=== PATIENT | male | born 1960 | race Caucasian/White ===

== ENCOUNTER → 2021-09-22 16:59 | Outpatient (CLI) | payer OTHER, SELFPAY ==
--- NOTE | ~2021-09-22 | MR_ITS ---
EXAMINATION: MR shoulder LT wo con DATE: 09/22/2021 17:42 INDICATION: Complete rotator cuff tear with posterior left shoulder pain radiating down the arm since lifting weights TECHNIQUE: Magnetic resonance imaging (MRI) of the left shoulder was performed without intravenous co ntrast. Sequences included axial PD-weighted FS FSE, coronal oblique PD-weighted FS FSE, coronal obli que T2-weighted FS FSE, sagittal PD-weighted FS FSE, and sagittal T1-weighted SE. COMPARISON: None. FINDINGS: Coracoacromial arch: The acromion undersurface is curved in morphology (type II) tiny subacromial spurs along the anterior lateral margin of the acromion. The coracoacromial ligament is normal. Mild acromioclavicular osteoa rthritis. Rotator cuff: Moderate supraspinatus tendinopathy with a tiny <2 mm intrasubstance tears with underlying mild cysti c change at the posterior aspect of the superior facet footplate. Mild tendinopathy of the anterior i nfraspinatus tendon. The teres minor tendon is normal. The subscapularis tendon is normal. Normal rot ator cuff muscle bulk and signal. Biceps tendon, glenoid labrum and glenohumeral cartilage: Long head of the biceps tendon is normal. There is a superior, anterior to posterior tear of the cielo oid labrum (SLAP tear) extending from the 1:30 position anteriorly to the 10:00 position posteriorly with small marginal osteophytes along the underlying posterior superior rim of the glenoid. A posteri or to posterior inferior glenoid labrum is diminutive but without discrete tear. Degeneration of the inferior labrum which is been largely replaced by marginal osteophytes. Partial-thickness cartilage l oss with chondral surface irregularity throughout the humeral head and at the cephalad two thirds of the glenoid. Additional small marginal osteophytes along the inferior humeral head. Fluid: Physiologic amount of fluid in the glenohumeral joint and biceps tendon sheath. No loose osteochondr al bodies. No abnormal increased fluid signal in the subacromial/subdeltoid bursa to suggest bursitis . Bones: Normal marrow signal with no edema, fracture or pathologic marrow replacing process. IMPRESSION: 1. Moderate supraspinatus with tiny intrasubstance tear along the superior facet footplate. 2. Mild glenohumeral osteoarthritis with relatively diffuse labral tear/degeneration. 3. Mild acromioclavicular osteoarthritis. Reviewed, dictated and finalized at location A. IMPRESSION: 1. Moderate supraspinatus with tiny intrasubstance tear along the superior face t footplate. 2. Mild glenohumeral osteoarthritis with relatively diffuse labral tear/degener ation. 3. Mild acromioclavicular osteoarthritis.
== END ==
PROVIDERS: PCP Internal Medicine; Visit Provider Orthopaedic Surgery
DX: M75.112 Incomplete rotator cuff tear or rupture of left shoulder, not specified as traumatic (principal); M19.012 Primary osteoarthritis, left shoulder
CPT/HCPCS: 73221

== ENCOUNTER 2022-08-21 00:59 | Day surgery (SDC) | payer OTHER, SELFPAY ==
[2022-07-13 13:02] VITALS: BMI 32.8
--- NOTE | 2022-08-05 14:16 | PC.NURSE ---
verified with pt new date and time of procedure. pt denies any changes in medication or medical history since last PAT call. it was reiterated to pt that he has to have a local owner operator truck driver to take him home.
[2022-08-21 06:47] VITALS: BP 124/93; PULSE 82; RESP 20; TEMP 35.9; O2SAT 99; BMI 32.0
[2022-08-21] MEDS: LACTATED RINGERS 1,000 ML 150 ML IV CONT (06:59)
--- NOTE | 2022-08-21 07:09 | WPDANESEPPF ---
Anes - Initial Pre Proc Eval Procedure: Operation Date: 08/21/22 08:00 Proposed Procedures p Screening Colonoscopy - Israel Bolden MD Date/Time: 08/21/22 07:09 Surgeon: Israel Bolden MD Pre Op Diagnosis: neoplasm screening Patient Data Age: 62 Gender: M Height: 1.85 m Weight: 110 kg Last Vital Signs Temp 35.9 C L 08/21/22 06:47 Pulse 82 08/21/22 06:47 Resp 20 08/21/22 06:47 BP 124/93 H 08/21/22 06:47 Pulse Ox 99 08/21/22 06:47 O2 Del Method Room Air 08/21/22 06:47 Allergies Allergy/AdvReac Type Severity Reaction Status Date / Time atorvastatin Allergy Intermediate body Verified 08/11/22 10:19 aches, muscle aches rosuvastatin Allergy Intermediate body Verified 08/11/22 10:19 aches, muscle aches Fnqhhkx-NZO-UiZ Reductase Allergy Intermediate body Verified 08/11/22 10:19 Inhibitor aches, [Ohjcfij-Rnc-Zck Reductase muscle Inhibitor] aches bempedoic acid AdvReac Intermediate muscle Verified 08/11/22 10:19 [From Nexletol] spasm, tension Home Medications Medication Instructions Recorded Confirmed Type albuterol sulfate 90 mcg/actuation 2 inh inhalation Q6H PRN shortness 12/11/21 08/11/22 Rx aerosol inhaler (ProAir HFA) of breath or wheezing #8.5 grams colesevelam 625 mg tablet See Rx Instructions .Route 03/06/22 08/11/22 Rx .COMPLEX #720 tabs ezetimibe 10 mg tablet (Zetia) 10 mg PO DAILY #90 tabs 03/06/22 08/11/22 Rx bimatoprost 0.01 % eye drops 1 drp EACH EYE DAILY 07/13/22 08/11/22 History (Lumigan) citalopram 10 mg tablet 10 mg PO DAILY #30 tabs 07/24/22 08/21/22 Rx Patient hx anesthesia problems: none Family hx anesthesia problems: none Results Review: All pre-operative results and documents have been reviewed as part of the pre-operative evaluation. [facility] Past Medical History Medical History Depression Ear pain, left History of stress test (~2010) Hyperkalemia Hyperlipidemia Low testosterone in male Superior labrum jjxttwth-on-jgkihcwcm (SLAP) tear of left shoulder Surgical History Surgical History (Updated 08/21/22 @ 07:09 by Ruy Figueroa MD) H/O colonoscopy Family History Family History Mother , congestive heart failure Hypertension Sibling Patient's sister is in good health Patient's brother is in good health Family history of malignant neoplasm of thyroid Other Family history of arthritis Family history of cardiovascular disease Social History Social History Smoking packs per day: 1 Smoking cigarettes per day: 20.0 Years smoked: 2 Smoking pack-years: 2.00 Smoking status: Former smoker Tobacco type: cigarettes Second hand tobacco smoke exposure: No Smoking end date: 07/05/81 Alcohol intake: current Drinks per week: 2 Alcohol use details: on occasion Substance use: never Substance use type: does not use Lack of Transportation: No Lack of Food: Never True Current Housing: I Have Housing Concerned About Future Housing: No Difficulty Paying Gas/Electric Bills: No Difficulty Paying for Meds: No Currently Unemployed: No Education: Master's Degree or Higher Difficulty w/ Childcare or Family Care: No Living arrangements: alone Spiritual care concerns: No Anes - Eval Final PreProcedure Day of Procedure 08/21/22 07:09 Patient weight: obese Heart: regular rate and rhythm Lungs: clear to auscultation Airway: Mallampati scale class II Neurological: alert and oriented Last oral intake: >/= 8 hours ASA classification: II Emergent: no Anesthetic plan: proceed Anesthesia type and monitoring: general GIVS and standard monitoring Results Review: All pre-operative results and documents have been reviewed as part of the pre-operative evaluation. Informed Co
--- NOTE | 2022-08-21 07:24 | PM.HPGS ---
History of Present Illness History of Present Illness Consent: Risks, benefits, and alternatives have been discussed and questions answered. Patient agrees to proceed with procedure. Chief complaint: neoplasm screening Narrative: Ruy Tony is a 62 year old male Presents for screening colonoscopy. Patient's current weight appetite and bowel movements are normal. Patient denies abdominal pain. He has had no bleeding. Family history noncontributory. Review of Systems Review of Systems: Review of systems noncontributory. [facility] Past Medical History Medical History (Updated 08/21/22 @ 07:25 by Israel Bolden MD) Depression Ear pain, left History of stress test (~2010) Hyperkalemia Hyperlipidemia Low testosterone in male Superior labrum oflphgar-pe-ymfcywepk (SLAP) tear of left shoulder Surgical History Surgical History (Updated 08/21/22 @ 07:09 by Ruy Figueroa MD) H/O colonoscopy Family History Family History Mother , congestive heart failure Hypertension Sibling Patient's sister is in good health Patient's brother is in good health Family history of malignant neoplasm of thyroid Other Family history of arthritis Family history of cardiovascular disease Social History Social History Smoking packs per day: 1 Smoking cigarettes per day: 20.0 Years smoked: 2 Smoking pack-years: 2.00 Smoking status: Former smoker Tobacco type: cigarettes Second hand tobacco smoke exposure: No Smoking end date: 07/05/81 Alcohol intake: current Drinks per week: 2 Alcohol use details: on occasion Substance use: never Substance use type: does not use Lack of Transportation: No Lack of Food: Never True Current Housing: I Have Housing Concerned About Future Housing: No Difficulty Paying Gas/Electric Bills: No Difficulty Paying for Meds: No Currently Unemployed: No Education: Master's Degree or Higher Difficulty w/ Childcare or Family Care: No Living arrangements: alone Spiritual care concerns: No Meds Home Medications and Allergies Home Medications Medication Instructions Recorded Confirmed Type albuterol sulfate 90 mcg/actuation 2 inh inhalation Q6H PRN shortness 12/11/21 08/11/22 Rx aerosol inhaler (ProAir HFA) of breath or wheezing #8.5 grams colesevelam 625 mg tablet See Rx Instructions .Route 03/06/22 08/11/22 Rx .COMPLEX #720 tabs ezetimibe 10 mg tablet (Zetia) 10 mg PO DAILY #90 tabs 03/06/22 08/11/22 Rx bimatoprost 0.01 % eye drops 1 drp EACH EYE DAILY 07/13/22 08/11/22 History (Lumigan) citalopram 10 mg tablet 10 mg PO DAILY #30 tabs 07/24/22 08/21/22 Rx Allergies Allergy/AdvReac Type Severity Reaction Status Date / Time atorvastatin Allergy Intermediate body Verified 08/11/22 10:19 aches, muscle aches rosuvastatin Allergy Intermediate body Verified 08/11/22 10:19 aches, muscle aches Rfjywlh-CPB-DqV Reductase Allergy Intermediate body Verified 08/11/22 10:19 Inhibitor aches, [Urlvprp-Fta-Rmy Reductase muscle Inhibitor] aches bempedoic acid AdvReac Intermediate muscle Verified 08/11/22 10:19 [From Nexletol] spasm, tension Vital Signs Vital Signs - 24 hr 08/21/22 06:47 Temperature 96.7 F L Pulse Rate 82 Respiratory Rate 20 Blood Pressure 124/93 H Pulse Oximetry 99 Oxygen Delivery Room Air Exam Narrative: Physical exam reveals patient to be alert. Vital signs stable. HEENT exam is unremarkable. Patient is anicteric. Lungs are clear to auscultation and percussion. Heart is without murmur or extra sounds. Abdomen bowel sounds are present soft nontender with no hepatosplenomegaly. . Digital external rectal exam is normal. Assessment and Plan Assessment and plan (1) Encounter for screening colonoscopy: Code(s): Z12.11 - Encoun
[2022-08-21 08:28] VITALS: BP 106/68; PULSE 78; RESP 18; O2SAT 95
[2022-08-21 08:38] VITALS: BP 101/64; PULSE 70; RESP 18; O2SAT 96
[2022-08-21 08:48] VITALS: BP 123/94; PULSE 72; RESP 22; O2SAT 97
== END 2022-08-21 08:55 | disposition home or self-care (01) ==
PROVIDERS: PCP Internal Medicine; Visit Provider Internal Medicine Gastroenterology
PROC: 0DJD8ZZ Inspection of Lower Intestinal Tract, Via Natural or Artificial Opening Endoscopic (ICD-10-PCS; CPT 45378; principal; 2022-08-21 08:00)
DX: Z12.11 Encounter for screening for malignant neoplasm of colon (principal); K64.8 Other hemorrhoids; E78.5 Hyperlipidemia, unspecified; F32.A Depression, unspecified; Z79.51 Long term (current) use of inhaled steroids; Z87.891 Personal history of nicotine dependence; E66.9 Obesity, unspecified; Z68.32 Body mass index [BMI] 32.0-32.9, adult
CPT/HCPCS: 45378; J2704; J7120

== ENCOUNTER 2022-11-06 12:51 | Emergency (ER) | payer OTHER, SELFPAY ==
--- NOTE | ~2022-11-06 | CT_ITS ---
EXAMINATION: CT abdomen pelvis wo con DATE: 11/06/2022 15:05 INDICATION: Right flank pain. Right testicular pain. TECHNIQUE: Computed tomography (CT) of the abdomen and pelvis was performed without intravenous contr ast. Automated exposure control and iterative reconstruction technique were employed. The dose-length product was 1033.38 mGy-cm. COMPARISON: CT abdomen and pelvis 08/20/2015 FINDINGS: The visualized portions of the lung bases demonstrate mild atelectasis. A calcified left yuri ng nodule and calcified left hilar lymph nodes are consistent with old granulomatous disease. No pleu ral effusion. The heart size is normal. There are coronary artery calcifications. No pericardial effu noah. The liver, gallbladder, spleen, pancreas, adrenal glands are normal. There is a 1 mm stone in r ight kidney. There is a 3.5 cm cyst in left kidney. The prostate is mildly enlarged. There are no dil ated loops of bowel. The appendix is normal. There are no pathologically enlarged lymph nodes. There is no free intraperitoneal fluid. There is an umbilical hernia containing fat. There is severe lower lumbar spondylosis. IMPRESSION: 1. Umbilical hernia containing fat. Reviewed, dictated and finalized at location A.
--- NOTE | ~2022-11-06 | US_ITS ---
EXAMINATION: US scrotum doppler DATE: 11/06/2022 13:46 INDICATION: Right testicular pain. TECHNIQUE: Grayscale and Doppler ultrasound images of the testes were obtained. COMPARISON: None. FINDINGS: The right testis measures 4.2 x 1.8 x 2.3 cm. The left testis measures 4.0 x 1.9 x 2.2 cm. There is normal vascular flow to both testes. The right epididymis is normal with normal vascular michael w. The left epididymis is normal with normal vascular flow. There is no varicocele or hydrocele. IMPRESSION: 1. Normal testes. Reviewed, dictated and finalized at location A. IMPRESSION: 1. Normal testes.
[2022-11-06 13:00] VITALS: BP 158/90; PULSE 99; RESP 16; TEMP 36.6; O2SAT 98
--- NOTE | 2022-11-06 13:03 | ED.GENADULT ---
HPI - General Adult General Chief complaint: Urogenital-Male Stated complaint: groin pain, Time Seen by Provider: 11/06/22 12:54 History of Present Illness HPI narrative: 62-year-old male presented to the emergency department for evaluation of acute onset right testicular and right groin pain. Patient states approximately 15 minutes prior to arrival he was working out in the yard when he had onset of a sharp pain. Denies any prior history of kidney stones or urologic surgeries. Patient states few days ago he was at the gym and had worsening right hip pain that radiated down his leg. Patient had follow-up with [place] [facility] and was diagnosed with sciatica. Patient was started on Medrol Dosepak, meloxicam and a muscle relaxer. Patient states the medications have been helping until today when he was working on the yard and had acute worsening of the right hip pain. Related Data Home Medications Medication Instructions Recorded Confirmed bimatoprost 0.01 % eye drops 1 drp EACH EYE DAILY 07/13/22 08/11/22 (Obie) Allergies Allergy/AdvReac Type Severity Reaction Status Date / Time atorvastatin Allergy Intermediate body Verified 11/06/22 13:04 aches, muscle aches rosuvastatin Allergy Intermediate body Verified 11/06/22 13:04 aches, muscle aches Cykvtuj-XUU-NsV Reductase Allergy Intermediate body Verified 11/06/22 13:04 Inhibitor aches, [Lxjhega-Cyl-Hsr Reductase muscle Inhibitor] aches bempedoic acid AdvReac Intermediate muscle Verified 11/06/22 13:04 [From Nexletol] spasm, tension Review of Systems Review of Systems: All systems reviewed & are unremarkable except as noted in HPI and below [facility] Past Medical History Medical History (Updated 11/06/22 @ 17:54 by Nazario Spivey MD) Depression Ear pain, left History of stress test (~2010) Hyperkalemia Hyperlipidemia Low testosterone in male Superior labrum xsaqqxta-th-qsyhzonpr (SLAP) tear of left shoulder Surgical History Surgical History (Updated 08/21/22 @ 07:09 by Ruy Figueroa MD) H/O colonoscopy Family History Family History Mother , congestive heart failure Hypertension Sibling Patient's sister is in good health Patient's brother is in good health Family history of malignant neoplasm of thyroid Other Family history of arthritis Family history of cardiovascular disease Social History Social History Smoking packs per day: 1 Smoking cigarettes per day: 20.0 Years smoked: 2 Smoking pack-years: 2.00 Smoking status: Former smoker Tobacco type: cigarettes Second hand tobacco smoke exposure: No Smoking end date: 07/05/81 Alcohol intake: current Drinks per week: 2 Alcohol use details: on occasion Substance use: never Substance use type: does not use Lack of Transportation: No Lack of Food: Never True Current Housing: I Have Housing Concerned About Future Housing: No Difficulty Paying Gas/Electric Bills: No Difficulty Paying for Meds: No Currently Unemployed: No Education: Master's Degree or Higher Difficulty w/ Childcare or Family Care: No Living arrangements: alone Spiritual care concerns: No Exam Narrative: APPEARANCE: Significant distress upon arrival to the ED HEAD: normocephalic, atraumatic. EYES: PERRLA/EOMI, conjunctivae clear. NOSE: Normal no drainage NECK: Supple. No adenopathy, no masses. RESPIRATORY: Airway patent, respirations nonlabored. Clear to auscultation bilaterally, no rales, rhonchi, wheezing. CARDIOVASCULAR: Regular rate and rhythm without murmurs rubs or gallops. ABDOMINAL: Tenderness to right groin and to right testicles. No scrotal abnormality MUSCULOSKELETAL: Moves all extremities. Strength/ROM intact, No edema, No calf tenderness. NEURO: Alert. Cranial nerves II through XII inta
[2022-11-06] MEDS: ONDANSETRON INJ 4 MG/2 ML VIAL IV PUSH (13:08)
[2022-11-06] MEDS: HYDROmorphone HCL INJ (*CRX) 1 MG/ML SYR IV PUSH ×2 (13:08→14:18)
[2022-11-06 13:17] LABS: Basophils Percent Auto 0.4 % (0.2-1.2); Eosinophils Percent Auto 0.2 % (0-4.4); Hematocrit 51.4 % (42.0-52.0); Hemoglobin 17.9 g/dL (14.0-18.0); Immature Granulocyte Absolute 0.07 K/mm3 (0.00-0.031); Immature Granulocyte Percent A 0.6 % (0-0.5); Lymphocytes Absolute Auto 3.02 K/mm3 (0.9-3.2); Mean Corpuscular HGB Conc 34.8 g/dl (32-36); Mean Corpuscular Hemoglobin 30.8 pg (26-34); Mean Corpuscular Volume 88.5 fl (80-100); Mean Platelet Volume 8.5 fl (7.4-10.4); Monocytes Absolute Auto 0.9 K/mm3 (0.1-0.6); Monocytes Percent Auto 8.4 % (2.6-8.5); Neutrophils Absolute Auto 6.7 K/mm3 (1.3-6.7); Neutrophils Percent Auto 62.4 % (45.5-73.1); Platelet Count Result 295 k/mm3 (150-375); Red Blood Count 5.81 M/mm3 (4.6-6.20); White Blood Count 10.8 K/mm3 (4.5-10.0)
[2022-11-06 13:36] LABS: Alanine Aminotransferase 80 U/L (6-50); Alkaline Phosphatase 52 U/L (38-126); Anion Gap 13 mmol/L (8-16); Aspartate Amino Transferase 64 U/L (17-59); Bilirubin,Total 0.8 mg/dL (0.2-1.3); Blood Urea Nitrogen 22 mg/dL (9-20); Calcium 9.4 mg/dL (8.4-10.2); Carbon Dioxide 21 mmol/L (22-30); Chloride 105 mmol/L (98-107); Estimated CRCL calculation 100 ml/min; Estimated Glomerular Filt Rate > 60; Glucose 97 mg/dL (65-110); Potassium 3.6 mmol/L (3.4-5.0); Sodium 139 mmol/L (137-145)
[2022-11-06 14:11] LABS: INR 0.9; Prothrombin Time 12.6 Seconds (11.1-14.7)
[2022-11-06] MEDS: SODIUM CHLORIDE 0.9% IV 1,000 ML 999 ML IV CONT (14:14)
[2022-11-06 15:44] LABS: Appearance Urine Clear (Clear); Bacteria Urine None Seen /hpf; Bilirubin Urine Negative (Negative); Blood Urine Negative (Negative); Color Urine Yellow (Yellow); Glucose Urine UA Negative (Negative); Ketones Urine Negative (Negative); Leukocyte Esterase Ur Negative LEU/UL (Negative); Need Manual Microscopic Reviewed; Nitrate Urine Negative (Negative); Non Pathogenic Casts 0-2; Protein Urine Trace mg/dL (Negative); RBC Urine 0-2 /hpf (0-2); Squamous Epithelial Cell Urine None seen /hpf (Few); Urobilinogen Urine 0.2 mg/dL (<2.0); WBC Urine 0-5 /hpf; pH Urine 5.5 (5.0-9.0)
[2022-11-06 15:50] LABS: Add Urine Microscopic? YES
[2022-11-06 17:15] VITALS: BP 178/92; PULSE 63; RESP 15; O2SAT 96
[2022-11-06] MEDS: HYDROcodone/acetaminophen (*CRX) 5-325 MG TABLET 1 TAB PO (18:25)
== END 2022-11-06 18:28 | disposition home or self-care (01) ==
PROVIDERS: Emergency Provider Emergency Medicine; PCP Internal Medicine
DX: N50.811 Right testicular pain (principal); M54.31 Sciatica, right side; E78.5 Hyperlipidemia, unspecified; Z87.891 Personal history of nicotine dependence; K42.9 Umbilical hernia without obstruction or gangrene
CPT/HCPCS: 36415; 74176; 76870; 80053; 81001; 85025; 85610; 85730; 93976; 96361; 96374; 96375; 96376; 99284; A9270; J1170; J2405; J7030

== ENCOUNTER 2022-11-21 09:26 | Outpatient (CLI) | payer OTHER, SELFPAY ==
--- NOTE | ~2022-11-21 | MR_ITS ---
EXAMINATION: MR lumbar spine wo con DATE: 11/21/2022 09:59 INDICATION: Right-sided sciatica. Severe lumbar spondylosis. TECHNIQUE: Magnetic resonance imaging (MRI) of the lumbar spine was performed without intravenous con trast. Sequences included sagittal T2-weighted FSE, sagittal T2-weighted FS FSE, sagittal T1-weighted FSE, and axial T2-weighted FSE. COMPARISON: None FINDINGS: There is 4 degrees levocurvature of lumbar spine. There is mild chronic anterior wedging of T12 and L1 vertebral bodies. There is mildly decreased disc height from L1-L2 through L4-L5 and janina rely decreased disc height at L5-S1. The distal spinal cord signal intensity is normal. The conus med ullaris is at L1. There is a 3.6 cm cyst in left kidney. The following disc levels are specifically d iscussed: L1-L2: The disc is bulging. There is mild bilateral facet joint osteoarthritis. There is mild right n eural foraminal stenosis. There is mild central canal stenosis. L2-L3: The disc is bulging. There is mild bilateral facet joint osteoarthritis. There is mild bilater al neural foraminal stenosis. There is mild central canal stenosis. L3-L4: The disc is bulging and has an annular fissure. There is mild bilateral facet joint osteoarthr itis. There is mild right and moderate left neural foraminal stenosis. There is mild central canal st enosis. L4-L5: The disc is bulging with superimposed central extrusion. There is moderate bilateral facet angela nt osteoarthritis. There is moderate right and mild left neural foraminal stenosis. There is mild lubna tral canal stenosis. L5-S1: The disc is bulging and has an annular fissure. There is severe bilateral facet joint osteoart hritis. There is moderate bilateral neural foraminal stenosis. There is mild central canal stenosis. IMPRESSION: 1. Severe lumbar spondylosis. Reviewed, dictated and finalized at location A.
== END 2022-11-21 09:27 | disposition home or self-care (01) ==
PROVIDERS: PCP Internal Medicine; Visit Provider Physician Assistant
DX: M54.31 Sciatica, right side (principal); M47.816 Spondylosis without myelopathy or radiculopathy, lumbar region
CPT/HCPCS: 72148

== ENCOUNTER → 2023-10-05 13:22 | Outpatient (REF) | payer OTHER, SELFPAY | LOC: ANHLAB 13:22 | PROVIDERS: PCP Internal Medicine; Visit Provider Plastic Surgery | DX: L72.0 Epidermal cyst (principal) | CPT/HCPCS: 88305 ==

== ENCOUNTER 2024-05-03 09:57 | Outpatient (CLI) | payer OTHER, SELFPAY ==
--- NOTE | ~2024-05-03 | XR_ITS ---
XR knee LT 3V Ordering provider: Silvino Coyle DO History: . M25.569 - Pain in knee, FELT POP WHEN WEIGHTLIFTING . Comparison: None. FINDINGS: BONES: No acute fracture or dislocation. JOINT SPACES: Normal. SOFT TISSUES: Atherosclerotic changes of the arteries. IMPRESSION: No acute osseous abnormality left knee. Reviewed, dictated and finalized at location A.
== END 2024-05-03 09:58 | disposition home or self-care (01) ==
PROVIDERS: PCP Internal Medicine; Visit Provider Internal Medicine
DX: M25.562 Pain in left knee (principal)
CPT/HCPCS: 73562

== ENCOUNTER 2024-12-04 10:05 | Outpatient (CLI) | payer OTHER, SELFPAY ==
--- NOTE | ~2024-12-04 | MR_ITS ---
MRI of the left knee Clinical history: Chondromalacia patella Technique: Coronal proton density and proton density-weighted images, sagittal proton-density and T2 fat-sat images, and axial proton-density fat-saturated images were acquired. Findings: Anterior and posterior cruciate ligaments are intact. Medial collateral ligament and the la teral collateral ligament complex are intact. Popliteus tendon is intact. Medial meniscus is intact, without evidence of tear. There is complex tearing of the anterior horn an d body of the lateral meniscus. Articular cartilage in the patellofemoral compartment is well preserved. There is high-grade chondral /the lateral joint line with additional grade 4 focal chondral lesion at the lateral femoral condyle. There is subchondral reactive marrow edema/joint line. Articular cartilage in the medial compartment is well preserved. Extensor mechanism is intact. Moderate joint effusion present. No Cameron's cyst. Impression: Extensive complex tearing of the anterior horn and body of the lateral meniscus. Moderate to high-grade chondral malacia at the lateral joint line and lateral femoral condyle with ellison bchondral reactive marrow edema, as detailed above. Moderate joint effusion. Reviewed, dictated and finalized at [facility]. Impression: Extensive complex tearing of the anterior horn and body of the lateral meniscus . Moderate to high-grade chondral malacia at the lateral joint line and lateral f emoral condyle with subchondral reactive marrow edema, as detailed above. Moderate joint effusion.
--- NOTE | ~2024-12-04 | XR_ITS ---
Left Knee Technique: AP, lateral, and sunrise views were obtained. Clinical History: Chondromalacia Findings: No fracture or dislocation is seen. Osseous alignment is anatomic. Joint spaces are preserv ed without degenerative or erosive change. Soft tissues are unremarkable. No joint effusion is seen. Impression: Unremarkable left knee radiographs. Reviewed, dictated and finalized at location . Impression: Unremarkable left knee radiographs.
== END 2024-12-04 10:06 | disposition home or self-care (01) ==
PROVIDERS: PCP Orthopaedic Surgery; Visit Provider Orthopaedic Surgery
DX: M22.42 Chondromalacia patellae, left knee (principal); M25.462 Effusion, left knee; S83.272A Complex tear of lateral meniscus, current injury, left knee, initial encounter; X58.XXXA Exposure to other specified factors, initial encounter
CPT/HCPCS: 73564; 73721

== ENCOUNTER 2025-02-12 01:22 | Day surgery (SDC) | payer OTHER, SELFPAY ==
[2025-02-08 08:26] VITALS: BMI 34.3
--- NOTE | 2025-02-08 08:35 | PC.NURSE ---
Report to the Outpatient Waiting Room, entrance under the green pavilion located off [facility], at time _1pm_ on date _[phone]_. Planned Procedure Time: _3pm_.? Time changes happen often and if your time is changed the preop area will call you the afternoon before. - You and your visitor will be asked to self-screen and do not enter if you have any COVID symptoms. Please call surgeon if you need to reschedule. - A mask is optional within the hospital at this time. Patients may have clear liquids (water, carbonated beverages, clear teas, apple juice) until 3 hours prior to surgery with a maximum of 20 ounces. - No food from midnight until time of surgery and no smoking, or chewing tobacco (or any form of nicotine). No chewing gum, candy or mints. Take only the following medications with a SIP of water on the morning of surgery: ___Citalopram,, eye drops and if needed Inhaler.____ DO NOT STOP ANY OF YOUR OTHER PRESCRIPTION MEDICATIONS PRIOR TO SURGERY EXCEPT THE FOLLOWING Hold all vitamins and supplements for 3 days per anesthesiologist. Medications to discontinue per physician Date to take last pjvk__[phone]____ Please no make-up, nail south korean, hairspray, perfume, deodorant, or body powder the day of surgery.? No jewelry (including any body piercings) or valuables the day of surgery, leave them at home.? Please take a shower or bath the night before, or the morning of, surgery with an antibacterial soap.? Wear comfortable, loose fitting clothing.? - Jewelry must be removed prior to entering the operating room.? Rings and piercings that are not removed may be cut off. - The hospital will not accept responsibility for valuables.? - Please leave all valuables, including medications, at home the day of surgery. If you are going home after surgery, a licensed route sales delivery driver must drive you home.? - NO public transportation without another adult if you receive anesthesia. - We recommend that an adult stay with you for 24 hours following discharge. - We also recommend that you do not drive, make important decision, drink alcoholic beverages, or take any drugs that were not prescribed by your health care provider for at least 24 hours after your discharge time. Follow any additional instructions given to you from your surgeon. Telephone instructions given to __James__and asked if any additional questions and then verbalized understanding. Patient advised to call surgeon office or pre surgery nurse liaison [phone] if any additional questions.
[2025-02-12] VITALS (10 sets, daily range): BP systolic 129–174; BP diastolic 79–100; PULSE 62–76; RESP 12–18; TEMP 36.3–36.5; O2SAT 98–100
--- OUTSIDE RECORDS SUMMARY | 2025-02-12 01:25 | XMS_ITS | Continuity of Care Document ---
Author Organization [facility] Address [address] [place] [address] Phone Care Team Providers Care Curriculum Development Coordinator Name Role Phone Contreras OD, [place] Unavailable Unavailable Procedures Procedure Date Contact Lens Hydrophilic, Spherical Medical Tax Eye Exam & Treatment Refraction Contact Lens Hydrophilic, Spherical [facility] Visual Field Examination(s) Office/outpatient Visit, Est Contact Lens Hydrophilic, Spherical [facility] Office/outpatient Visit, Est Post-op Follow-up Visit Laser Surgery Of Eye CL Replacement - Vistakon Disp W/BW Soft BoosterMedia Eye Exam & Treatment Refraction Office/outpatient Visit, Est Eye Exam Established Pt Corneal Pachymetry Fundus Photography W/ Report Office Consultation Ophthalmoscopy Eye Exam Established Pt Visual Field Examination(s) Advance Directives Directive Yes / No Effective Date File Name No Information Encounters Encounter Description Practice Location Reason(s) For Visit Diagnoses Date Provider Providers Copied on Encounter [employer], [address], [place], [place], [id number], [place] tel:[phone] [facility] No Information Nov-1 7-201 0 Contreras OD [place]. [address] [place], [place] [address]ate Center , [address], [place], [place], [facility], [place]. tel:[phone] Located within [facility], [address] [place] [address] [address], [place], [place], [id number], [place] tel:[phone] [facility] [place] No Information Nov-0 2-201 0 Contreras OD [place]. [address] [place], [place] [address]ate Center , [address], [place], [place], [facility], [place]. tel:[phone] Located within [facility], [address] [place] [address] [address], [place], [place], [address], [place] tel:[phone] [facility] No Information Cade-0 9-201 0 Contreras OD [place]. [address] [place] [address] Center , [address], [place], [place], [facility], [place]. tel:[phone] Located within [facility], [address] [place] [address] [address], [place], [place], [address], [place] tel:[phone] [facility] No Information Cade-0 3-201 0 Trena Maki. [address] [place] [address] Center , [address], [place], [place], [facility], [place]. tel:[phone] Referring Provider: Glynn Ng, [address] [place], [place] [address]ate [place] [address], [place], [place], [facility]. tel:[phone] Office/outpati ent Visit, Est Located within [facility], [address] [place] [address] [address], [place], [place], [address], [place] tel:[phone] [facility] No Information Cade-0 2-201 0 Trena Maki. [address] [place] [address] , [address], [place], [place], [facility], [place]. tel:[phone] Located within [facility], [address] [place] [address] [address], [place], [place], [address], [place] tel:[phone] [facility] No Information Mar-0 3-201 0 Contreras OD [place]. [address] , [address], [place], [facility], [place]. tel:[phone] Office/outpati ent Visit, Est [facility], [address], [place], [place], [address], [place] tel:[phone] [facility] No Information Feb- 7-201 0 Doisy Edward. [address] , [address], [place], [facility], [place]. tel:[phone] Located within [facility], [address], [place], [place], [address], [place] tel:[phone] [facility] No Information Nov-1 1-200 9 Doisy Edward. [address] , [address], [place], [facility], [place]. tel:[phone] [facility], [address], [place], [place], [address], [place] tel:[phone] [facility] No Information Nov-0 3-200 9 Doisy Edward. [address] , [address], [place], [facility], [place]. tel:[phone] Located within [facility], [address], [place], [place], [address], [place] tel:[phone] [facility] No Information Oct-1 4-200 9 Contreras OD [place]. [address] , [address], [place], [facility], [place]. tel:[phone] [facility], [address], [place], [place], [address], [place] tel:[phone] [facility] No Information Sep-2 3-200 9 Contreras OD [place]. [address] , [address], [place], [address], [place]. tel:[phone] Office/outpati ent Visit, Est [facility], [address], [place], [place], [address], [place] tel:[phone] [facility] [place] No Information Sep-0 2-200 9 Trena Maki. [facility] , [address], [place], [facility], [place]. tel:[phone] [facility], [address], [place], [place], [address], [place] tel:[phone] [facility] No Information Mar-3 0-200 9 Trena Maki. [facility] , [address], [place], [facility], [place]. tel:[phone] Referring Provider: Glynn Ng, [facility] [address], [place], [facility]. tel:[phone] Office Consultation Located within [facility], [address], [place], [place], [address], [place] tel:[phone] [facility] No Information 9-200 9 Corbin Morales. [address] [place], [place], [facility], [place]. tel:[phone] Referring Provider: Glynn Ng, [facility] [address], [place], [facility]. tel:[phone] [facility], [address], [place], [place], [address], [place] tel:[phone] [facility] [place] No Information 2-200 9 Trena Maki. [facility] , [address], [place], [facility], [place]. tel:[phone] [facility], [address], [place], [place], [address], [place] tel:[phone] [facility] No Information 200 8 Trena Maki. [address] , [address], [place], [address], [place]. tel:[phone] Referring Provider: Darlin Shannon, [place], [address]. tel:[phone] Family History Family Member Type Diagnosis Age At Onset No Information Payers Payer name Insurance type Covered democrat ID Authoriza tion(s) No Information Social History Type Description Quantity Date Captured Comments Sex Male Smoking Status No Information Chief Complaint And Reason For Visit No Information Reason For Referral Reason For Referral No Information History Of Present Illness Encounter Date Complaint History Of Prese nt Illness No Information Functional Status Date Functional Assessmen t No Information Instructions Date Instruction Additional Infor mation No Information Assessments Type Assessment Date No Information Patient Care Teams Name Effective Dates (start - stop) Status Members No Information
--- NOTE | 2025-02-12 08:59 | ECG_ITS ---
Test Date: 2025-02-12 13:27:22 Measurements Intervals Maupin Rate: 60 P: 43 DE: 182 QRS: 12 QRSD: 102 T: 30 QT: 401 QTc: 401 Interpretive Statements SINUS RHYTHM BASELINE WANDER- V3 NORMAL ECG No previous ECG available for comparison Electronically Signed On 02-12-2025 13:34:34 CDT by Ernesto David D.O.
[2025-02-12] MEDS: ACETAMINOPHEN 500 MG TABLET 1000 MG PO (13:35)
[2025-02-12] MEDS: LACTATED RINGERS 1,000 ML 30 ML IV CONT (13:40)
[2025-02-12] MEDS: KETOROLAC 15 MG/ML VIAL (*BKC) IV PUSH (13:45)
--- NOTE | 2025-02-12 14:19 | WPDANESEPPF ---
Anes - Initial Pre Proc Eval Procedure: Operation Date: 02/12/25 15:00 Proposed Procedures p Left Knee Arthroscopic Partial Lateral Meniscectomy - Marco Antonio Venegas MD Date/Time: 02/12/25 14:19 Surgeon: Marco Antonio Venegas MD Pre Op Diagnosis: Lt Knee Lat. meniscus tear Patient Data Age: 64 Gender: M Height: 1.85 m Weight: 116.4 kg Last Vital Signs Temp 36.5 C 02/12/25 13:15 Pulse 65 02/12/25 13:15 Resp 18 02/12/25 13:15 BP 174/96 H 02/12/25 13:16 Pulse Ox 99 02/12/25 13:15 O2 Del Method Room Air 02/12/25 13:15 Allergies Allergy/AdvReac Type Severity Reaction Status Date / Time atorvastatin Allergy Intermediate body Verified 02/12/25 13:54 aches, muscle aches rosuvastatin Allergy Intermediate body Verified 02/12/25 13:54 aches, muscle aches Kgedyyc-JLN-SxM Reductase Allergy Intermediate body Verified 02/12/25 13:54 Inhibitor (Jwpwwav-Jpq-Caa aches, Reductase Inhibitor) muscle aches bempedoic acid (From AdvReac Intermediate muscle Verified 02/12/25 13:54 Nexletol) spasm, tension Home Medications ?Medication ?Instructions ?Recorded ?Confirmed ?Type bimatoprost 0.01 % eye drops 1 drp EACH EYE DAILY 07/13/22 02/12/25 History (Lumigan) citalopram 10 mg tablet 10 mg PO DAILY #90 tabs 02/23/24 02/12/25 Rx creatine monohydrate 5,000 mg oral 5,000 mg PO DAILY 03/22/24 02/12/25 History powder packet glucosamine HCl 1,500 mg tablet 1,500 mg PO DAILY 03/22/24 02/12/25 History fhoaxrwdrsvs-mjz-crtas acid-vit 1 tablet PO DAILY 03/22/24 02/12/25 History K-lycop 400 mcg-20 mcg-370 mcg tablet (One Daily Men's 50 Plus with D3) prasterone (DHEA) 25 mg capsule 25 mg PO DAILY 03/22/24 02/12/25 History zinc acetate 25 mg (zinc) capsule 25 mg PO DAILY 03/22/24 02/12/25 History (Galzin) cyclobenzaprine 10 mg tablet 10 mg PO QHS PRN muscle spasm #30 07/06/24 02/08/25 Rx tabs ezetimibe 10 mg tablet (Zetia) 10 mg PO DAILY #90 tabs 08/28/24 02/12/25 Rx levalbuterol tartrate 45 2 inh inhalation Q6H PRN shortness 10/26/24 02/08/25 Rx mcg/actuation aerosol inhaler of breath or wheezing #15 grams tadalafil 20 mg tablet (Cialis) 20 mg PO DAILY PRN sexual activity 10/26/24 02/08/25 Rx #30 tabs colesevelam 625 mg tablet See Rx Instructions .Route 01/15/25 02/12/25 Rx .COMPLEX #90 tabs hydrocodone 5 mg-acetaminophen 325 1 - 2 tablet PO Q4H PRN pain #14 02/12/25 Rx mg tablet tabs Patient hx anesthesia problems: none Family hx anesthesia problems: none Results Review: All pre-operative results and documents have been reviewed as part of the pre-operative evaluation. [facility] Past Medical History Medical History Low testosterone in male Superior labrum pqpypaew-ik-azwghgjag (SLAP) tear of left shoulder History of stress test (~2010) Ear pain, left Hyperkalemia Hyperlipidemia Depression Surgical History Surgical History H/O colonoscopy Family History Family History Mother , congestive heart failure Hypertension Sibling Patient's sister is in good health Patient's brother is in good health Family history of malignant neoplasm of thyroid Other Family history of arthritis Family history of cardiovascular disease Social History Social History Smoking packs per day: 1 Smoking cigarettes per day: 20.0 Years smoked: 2 Smoking pack-years: 2.00 Smoking status: Former smoker Tobacco type: cigarettes Second hand tobacco smoke exposure: No Smoking end date: 07/05/81 Alcohol intake: current Drinks per week: 2 Alcohol use details: on occasion Substance use: never Substance use type: does not use Do You Feel Safe in your Home?: Yes Lack of Transportation: No Lack of Food: Never True Current Housing: I Have Housing Concerned About Future Housing: No Difficulty Paying Gas/Electric Bills: No Difficulty Paying for Meds: No Currently Unemployed: No Education: Master's Degree or Higher Difficulty w/ Childcare or Family Care: No Living arrangements: alone Spiritual care concerns: No Anes - Eval Final PreProcedure Day of Procedure 02/12/25 14:19 Patient weight: obese Heart: regular rate and rhythm Lungs: clear to auscultation Airway: Mallampati scale class II Neurological: alert and oriented Last oral intake: >/= 8 hours ASA classification: II Emergent: no Anesthetic plan: proceed Anesthesia type and monitoring: general LMA and standard monitoring Results Review: All pre-operative results and documents have been reviewed as part of the pre-operative evaluation. Informed Consent: The patient's anesthetic plan and its attendant risks and benefits were discussed with the patient/family/POA. Questions were solicited and answers provided to the satisfaction of the patient/family/POA.
--- NOTE | 2025-02-12 14:29 | WPDHPUPDATE1 ---
History and Physical Update Update Date/Time: 02/12/25 14:29 History and Physical has been reviewed, including an updated exam of the patient. There are NO changes in the patient's condition. Risks, benefits, and alternatives have been discussed and questions answered. Patient agrees to proceed with procedure.
[2025-02-12] MEDS: ceFAZolin 2 GM in SODIUM CHLORIDE 0.9% IV 50 ML 100 ML IVPB (15:00)
[2025-02-12] MEDS: BUPIVACAINE/EPINEPHRINE 0.5% 50 ML VIAL 20 ML INFILTRATE (15:07)
--- NOTE | 2025-02-12 16:06 | P.OP_ITS ---
Procedure Note - Detailed Date of Procedure 02/12/25 Pre-op Diagnosis Lt Knee Lat. meniscus tear Post-op Diagnosis Other (1. Left knee lateral meniscus tear 2. Left knee medial femoral condyle osteochondral defect) Procedure Performed Left knee 1. Arthroscopic partial lateral meniscectomy 2. Arthroscopic microfracture medial femoral condyle osteochondral defect. Surgeon Marco Antonio Venegas MD Anesthesia General Findings The anterior and lateral aspect of the lateral meniscus was torn. There was an acute and chronic component. The split anteriorly was debrided with the shaver and the radiofrequency probe. This extended laterally. A stable rim was achieved. Was a long deep chondral fissure along the lateral femoral condyle. Gentle chondroplasty was performed. 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 The medial compartment cartilage was largely intact and the meniscus was normal. There was however a 6 mm x 12 mm osteochondral defect at the lateral margin of the weight-bearing area. It had a good rim of intact cartilage. The lesion was carefully debrided with the shaver and curette. Microfracture was performed with the Elissa picks. The patellofemoral joint looked good. There was minimal synovitis in the superior pouch. The ACL was normal. Description of Procedure The patient was identified and the surgical site confirmed and signed in the preoperative holding area. Antibiotics were started per protocol, and the eleazar ent was brought to the operative room and transferred to the OR table. A general anesthetic was administered. Supine position with the operative lower extremity position in the leg wyatt after placement of a well padded tourniquet. The leg support was lowered and the contralateral limb was supported with a soft bolster. The knee was prepped and draped in the usual sterile fashion. A time- out was performed. The portal sites were marked and infiltrated with 0.5% Marcaine 20 mL. The limb was exsanguinated and the tourniquet inflated to 300 mL Hg. Standard inferolateral and inferomedial portals were established. Inflow was obtained with the saline pump. The camera was introduced. Diagnostic inspection of the joint was accomplished. The meniscus was debrided with the arthroscopic shaver and punches until stable. The radiofrequency probe was also used for further d?bridement. The osteochondral defect was discovered at the lateral aspect of the anteromedial weight-bearing femoral condyle. Gentle debridement and curettage revealed an approximate 6 x 12 mm defect. It was amenable to microfracture with good peripheral cartilage rim and intact tibial cartilage. Several channels were created with the microfracture awls. These demonstrated good bleeding and bone marrow as the tourniquet was released. The arthroscopic instruments were removed. The tourniquet released and wounds closed with subcutaneous 4-0 Monocryl absorbable suture. Steri strips and a sterile dressing were applied. A light elastic wrap was placed. The patient was extubated and brought to the recovery room in stable condition. Estimated Blood Loss 3 Drains No Complications No immediate complications Condition Stable Disposition PACU [facility] Billing Surgery - Charge Forward: Surgery Billing
== END 2025-02-12 17:47 | disposition home or self-care (01) ==
PROVIDERS: PCP Internal Medicine; Visit Provider Orthopaedic Surgery
PROC: (CPT 29870; principal; 2025-02-12 15:00)
DX: S83.282A Other tear of lateral meniscus, current injury, left knee, initial encounter (principal); M17.12 Unilateral primary osteoarthritis, left knee; M94.262 Chondromalacia, left knee; E29.1 Testicular hypofunction; F32.A Depression, unspecified; X50.0XXA Overexertion from strenuous movement or load, initial encounter; E66.9 Obesity, unspecified; Z68.33 Body mass index [BMI] 33.0-33.9, adult; Z79.51 Long term (current) use of inhaled steroids; Z79.891 Long term (current) use of opiate analgesic; Z98.890 Other specified postprocedural states; Z87.891 Personal history of nicotine dependence; Z80.8 Family history of malignant neoplasm of other organs or systems; Z82.49 Family history of ischemic heart disease and other diseases of the circulatory system
CPT/HCPCS: 29881; 29879; 93005; J0690; A9270; J1100; J1885; J2003; J2250; J2371; J2405; J2704; J3010; J7120